=== PATIENT | female | born 1975 | race Caucasian/White ===

== ENCOUNTER → 2021-11-13 | Day surgery (SDC) | payer BC | END | disposition home or self-care (01) | LOC: FMAMMOTONE 10:25 | PROVIDERS: ATTEND Surgery | PROC: 0HBT3ZX Excision of Right Breast, Percutaneous Approach, Diagnostic (ICD-10-PCS; principal; 2021-11-13) | DX: N60.11 Diffuse cystic mastopathy of right breast (principal); N60.31 Fibrosclerosis of right breast; N60.81 Other benign mammary dysplasias of right breast; N64.89 Other specified disorders of breast; R92.8 Other abnormal and inconclusive findings on diagnostic imaging of breast | CPT/HCPCS: 19081; 76098-TC-FY; 87899; 88305-TC; A4648 ==

== ENCOUNTER 2024-08-03 11:40 | Emergency (ER) | payer BC ==
[2024-08-03 12:01] VITALS: TEMP 98.6; BMI 18.6
[2024-08-03] MEDS ORDERED: ACETAMINOPHEN INJECTION 100 ML ONE (13:35)
[2024-08-03] MEDS: ACETAMINOPHEN 1000 MG/100 ML BAG IVPB ONE (13:37)
[2024-08-03 13:51] LABS: PH,URINE 5.5 (5.0-8.0); URINE APPEARANCE CLEAR; URINE BILIRUBIN NEGATIVE (NEGATIVE); URINE COLOR YELLOW; URINE GLUCOSE (UA) NEGATIVE (NEGATIVE); URINE KETONE NEGATIVE (NEGATIVE); URINE LEUK ESTERASE NEGATIVE (NEGATIVE); URINE NITRITE NEGATIVE (NEGATIVE); URINE PROTEIN NEGATIVE (NEGATIVE); URINE UROBILINOGEN 0.2 mg/dL (0.2-1.0)
[2024-08-03 13:52] LABS: BASO % 0.5 % (0-2.0); EOS % 0.1 % (0-4.5); HEMATOCRIT 40.9 % (32.4-45.2); HEMOGLOBIN 13.3 GM/dL (10.7-15.3); LYMPH % 10.7 % (8-40); MCHC 32.6 g/dl (32.0-36.0); MEAN CELL VOLUME 92.1 fl (80-96); MEAN PLT VOLUME 8.2 fl (7.5-11.1); MONO % 6.3 % (3.8-10.2); NEUT % 82.4 % (42.8-82.8); PLATELET COUNT 281 10^3/uL (134-434); RBC 4.44 M/mm3 (3.60-5.2); WHITE BLOOD COUNT 12.1 K/mm3 (4.0-10.0)
[2024-08-03 14:00] LABS: INR 0.97 (0.83-1.09); PROTHROMBIN TIME (PATIENT) 11.2 SEC (9.7-13.0)
[2024-08-03 14:03] LABS: ACTIVATED PTT 28.6 SECONDS (25.2-36.5)
[2024-08-03 14:12] LABS: POTASSIUM 4.2 mmol/L (3.5-5.1)
[2024-08-03 14:15] LABS: CALCIUM 9.1 mg/dL (8.5-10.1)
[2024-08-03 14:19] LABS: CREATININE 0.7 mg/dL (0.55-1.3)
[2024-08-03 14:20] LABS: TOT PROT 7.1 g/dl (6.4-8.2)
[2024-08-03 14:21] LABS: BILIRUBIN,TOTAL 0.7 mg/dL (0.2-1)
[2024-08-03 17:15] LABS: HIV INTERPRETATION NEGATIVE (NEGATIVE)
[2024-08-03] MEDS ORDERED: morphine SULFATE 4 MG/ML VIAL ONE (18:33)
[2024-08-03] MEDS: morphine CARPU-JECT 4 MG/1 ML DISP.SYRIN IVPUSH ONE (18:36)
[2024-08-03 22:22] VITALS: BP 103/59; PULSE 76; RESP 13
== END 2024-08-03 23:24 | disposition home or self-care (01) ==
LOC: JER 11:40
PROC: 3E033NZ Introduction of Analgesics, Hypnotics, Sedatives into Peripheral Vein, Percutaneous Approach (ICD-10-PCS; principal; 2024-08-03)
PROC: 3E033NZ Introduction of Analgesics, Hypnotics, Sedatives into Peripheral Vein, Percutaneous Approach (ICD-10-PCS; 2024-08-03)
DX: R10.31 Right lower quadrant pain (principal); D21.9 Benign neoplasm of connective and other soft tissue, unspecified; R35.0 Frequency of micturition
CPT/HCPCS: 36415; 74177-TC; 76830-TC; 80053; 81003; 83690; 84703; 85025; 85610; 85730; 86803; 86850; 86900; 86901; 87086; 87389; 93005; 93010; 99285-25; J0131; Q9967

== ENCOUNTER 2025-02-16 06:23 | Day surgery (SDC) | payer BC ==
[2025-02-11 14:52] VITALS: BMI 19.2
[2025-02-16] MEDS ORDERED: MIDAZOLAM HCL 2 MG/2 ML SINGLE DOSE VIAL ONE (14:15)
[2025-02-16] MEDS ORDERED: PROPOFOL 20 ML ONE (14:15)
[2025-02-16] MEDS ORDERED: PROMETHAZINE HCL 25 MG/1 ML VIAL IVPB PRN (14:20)
[2025-02-16] MEDS ORDERED: ONDANSETRON 4 MG/2 ML VIAL IVPUSH PRN (14:20)
[2025-02-16] MEDS ORDERED: ceFAZolin SODIUM 1 GM VIAL ONE (14:28)
[2025-02-16] MEDS ORDERED: LACTATED RINGERS SOLUTION 1,000 ML IV SCH (14:30)
[2025-02-16] MEDS: ceFAZolin 2 GRAM PREMIX BAG IVPB ONE (14:30)
[2025-02-16] MEDS: LIDOCAINE HCL 1%, 10 MG/ML (20ML VIAL) INF ONE (14:43)
[2025-02-16] MEDS ORDERED: ACETAMINOPHEN INJECTION 100 ML ONE (15:49)
[2025-02-16] MEDS: ACETAMINOPHEN 1000 MG/100 ML BAG IVPB ONE (15:51)
[2025-02-16] MEDS: oxyCODONE HCL 5 MG TABLET PO PRN (16:39)
[2025-02-16] MEDS ORDERED: oxyCODONE HCL 5 MG TABLET ONE (16:42)
[2025-02-16 16:49] VITALS: PULSE 86; RESP 16
[2025-02-16 17:23] VITALS: BP 107/62; TEMP 97.7
== END 2025-02-16 17:25 | disposition home or self-care (01) ==
LOC: JASU-SURG 06:23
PROVIDERS: ATTEND Surgery
PROC: 0HBT0ZZ Excision of Right Breast, Open Approach (ICD-10-PCS; principal; 2025-02-16 12:00)
DX: D05.01 Lobular carcinoma in situ of right breast (principal)
CPT/HCPCS: 19281; 76098-TC-FY; 81025; 82962; 88307-TC; 88342-TC; 93005; 93010; 94760; J0131